=== PATIENT | female | born 1945 | race Caucasian/White ===

== ENCOUNTER 2023-06-04 19:30 | Observation (INO) | payer MEDICARE, BC ==
[2023-06-04] VITALS (20 sets, daily range): BP systolic 55–109; BP diastolic 33–56
[~2023-06-04] VITALS: Ht 162.6 cm; Wt 82.0 kg
[2023-06-04] MEDS ORDERED: LEVOTHYROXIN25 MC1 PO (19:58)
[2023-06-04] MEDS ORDERED: ALDACTONE25 MG PO (19:58)
[2023-06-04] MEDS ORDERED: ELIQUIS5 MG PO (19:58)
[2023-06-04] MEDS ORDERED: NORVASC PO (19:59)
[2023-06-04] MEDS ORDERED: FERROUS SULFAT325 MG PO (19:59)
[2023-06-04] MEDS ORDERED: BENAZEPRIL20 M1 PO (19:59)
[2023-06-04] MEDS ORDERED: COREG25 MG PO (20:00)
[2023-06-04] MEDS ORDERED: FENTANYL25 MCG/HR TD (20:00)
[2023-06-04] MEDS ORDERED: CYMBALTA30 MG PO (20:00)
[2023-06-04 20:17] LABS: BASO% 0.4 % (0-3); EOS% 1.8 % (0-8); HEMATOCRIT 33.3 % (37.0-47.0); HEMOGLOBIN 10.6 g/dl (12.0-16.0); IMMATURE GRANULOCYTES 0.3 % (0.0-5.0); LYMPH% 20.6 % (15-41); MEAN CORPUSCULAR HGB 29.6 pG CALC (26.0-32.0); MEAN CORPUSCULAR HGB CONC 31.8 g/dL CAL (32.0-36.0); NEUT# 5.29 thou/uL (2.00-7.15); NEUT% 68.9 % (42-76); RED BLOOD COUNT 3.58 mill/uL (4.20-5.60); RED CELL DISTRI WIDTH 13.6 % (11.5-15.5)
[2023-06-04 20:27] LABS: ALBUMIN 3.5 g/dL (3.2-5.0); BILIRUBIN, TOTAL 0.6 mg/dL (0.02-1.3); CREATININE 3.5 mg/dL (0.5-1.0); MAGNESIUM 1.5 mg/dL (1.6-2.3); POTASSIUM 5.6 mmol/l (3.5-5.1)
[2023-06-04 20:57] LABS: TSH, 3RD GENERATION 3.86 uIU/mL (0.47 - 4.68)
[2023-06-04 22:32] LABS: URINE BILIRUBIN - DIPSTICK NEGATIVE (NEGATIVE); URINE BLOOD DIPSTICK NEGATIVE (NEGATIVE); URINE COLOR YELLOW; URINE GLUCOSE - DIPSTICK NEGATIVE (NEGATIVE); URINE KETONE TRACE mg/dL (NEGATIVE); URINE PH 5.5 (4.5-8.0); URINE PROTEIN - DIPSTICK NEGATIVE (NEG-TRACE); URINE SPECIFIC GRAVITY 1.015; URINE UROBILINOGEN - DIPSTICK 0.2 E.U./dL (0.2)
[2023-06-04 22:33] LABS: URINE LEUK ESTERASE SMALL (NEGATIVE); URINE NITRITE - DIPSTICK NEGATIVE (Negative)
[2023-06-04 22:38] LABS: URINE SQUAMOUS EPITHELIAL CELL MANY EPI/hpf (0-FEW)
[2023-06-04 22:39] LABS: URINE HYALINE CAST RARE lpf (NONE-RARE)
[2023-06-05] VITALS (11 sets, daily range): BP systolic 87–139; BP diastolic 44–82
[2023-06-05 05:27] LABS: CREATININE 2.7 mg/dL (0.5-1.0)
[2023-06-05 05:33] LABS: POTASSIUM 5.5 mmol/l (3.5-5.1)
[2023-06-06 05:35] LABS: BASO% 0.3 % (0-3); EOS% 2.6 % (0-8); HEMATOCRIT 31.9 % (37.0-47.0); HEMOGLOBIN 9.9 g/dl (12.0-16.0); IMMATURE GRANULOCYTES 0.3 % (0.0-5.0); LYMPH% 25.1 % (15-41); MEAN CELL VOLUME 93.5 fL CALC (80.0-100.0); MONO% 7.7 % (2-13); NEUT# 3.97 thou/uL (2.00-7.15); RED BLOOD COUNT 3.41 mill/uL (4.20-5.60); RED CELL DISTRI WIDTH 13.8 % (11.5-15.5)
[2023-06-06 05:45] LABS: MAGNESIUM 1.8 mg/dL (1.6-2.3)
[2023-06-06 05:54] LABS: CREATININE 1.7 mg/dL (0.5-1.0)
[2023-06-06 07:20] VITALS: BP 94/48
[2023-06-06 11:38] LABS: CREATININE 1.5 mg/dL (0.5-1.0); POTASSIUM 5.9 mmol/l (3.5-5.1)
[2023-06-06 15:33] VITALS: BP 123/61
[2023-06-06 15:53] LABS: CREATININE 1.5 mg/dL (0.5-1.0); POTASSIUM 5.9 mmol/l (3.5-5.1)
[2023-06-06 18:58] VITALS: BP 108/56
[2023-06-06 22:08] VITALS: BP 109/56
[2023-06-07 00:19] VITALS: BP 115/64
[2023-06-07 04:50] VITALS: BP 126/68
[2023-06-07 08:00] VITALS: BP 144/92
[2023-06-07 11:54] VITALS: BP 144/92
[2023-06-07 12:16] LABS: ALBUMIN 3.7 g/dL (3.2-5.0); CREATININE 1.3 mg/dL (0.5-1.0)
[2023-06-07 12:17] LABS: POTASSIUM 5.6 mmol/l (3.5-5.1)
[2023-06-07 15:47] VITALS: BP 144/92
[2023-06-08 04:37] LABS: BASO% 0.5 % (0-3); EOS% 2.4 % (0-8); HEMATOCRIT 32.7 % (37.0-47.0); HEMOGLOBIN 10.4 g/dl (12.0-16.0); IMMATURE GRANULOCYTES 0.7 % (0.0-5.0); LYMPH% 17.8 % (15-41); MEAN CELL VOLUME 92.9 fL CALC (80.0-100.0); MEAN CORPUSCULAR HGB 29.5 pG CALC (26.0-32.0); MEAN CORPUSCULAR HGB CONC 31.8 g/dL CAL (32.0-36.0); MONO% 8.9 % (2-13); NEUT# 5.9 thou/uL (2.00-7.15); NEUT% 69.7 % (42-76); RED BLOOD COUNT 3.52 mill/uL (4.20-5.60); RED CELL DISTRI WIDTH 13.8 % (11.5-15.5)
[2023-06-08 04:55] LABS: CREATININE 1.3 mg/dL (0.5-1.0); POTASSIUM 4.6 mmol/l (3.5-5.1)
[2023-06-08 05:03] LABS: ALBUMIN 2.8 g/dL (3.2-5.0)
[2023-06-08 08:00] VITALS: BP 144/92
[2023-06-08] MEDS ORDERED: FOLIC ACID1 M1 PO (09:18)
[2023-06-08 09:19] VITALS: BP 127/62
[2023-06-08 09:47] VITALS: BP 139/73
== END 2023-06-08 10:02 | disposition home health service (06) ==
LOC: ED 19:30 → ED-I 22:35 → ED 22:54 → MS2 22:55 → ICU 22:55 → MS2 23:40 → ICU 06-06 21:21
PROVIDERS: Family Medicine; Internal Medicine Nephrology; Nurse Practitioner Family; ADMIT Internal Medicine; ATTEND Internal Medicine
DX: T46.5X1A Poisoning by other antihypertensive drugs, accidental (unintentional), initial encounter (principal); I95.2 Hypotension due to drugs; E86.0 Dehydration; E86.1 Hypovolemia; N17.9 Acute kidney failure, unspecified; E87.5 Hyperkalemia; E83.39 Other disorders of phosphorus metabolism; I12.9 Hypertensive chronic kidney disease with stage 1 through stage 4 chronic kidney disease, or unspecified chronic kidney disease; N18.9 Chronic kidney disease, unspecified; E87.20 Acidosis, unspecified; E03.9 Hypothyroidism, unspecified; K59.00 Constipation, unspecified; I48.91 Unspecified atrial fibrillation; Z20.822 Contact with and (suspected) exposure to COVID-19

== ENCOUNTER 2023-06-14 11:44 | Observation (INO) | payer MEDICARE, BC ==
[2023-06-14] VITALS (33 sets, daily range): BP systolic 72–118; BP diastolic 38–83
[~2023-06-14] VITALS: Ht 10.2 cm; Wt 80.0 kg
[~2023-06-14 11:44] MED LIST: ALDACTONE25 MG PO; BENAZEPRIL20 M1 PO; COREG25 MG PO; CYMBALTA30 MG PO; ELIQUIS5 MG PO; FENTANYL25 MCG/HR TD; FERROUS SULFAT325 MG PO; FOLIC ACID1 M1 PO; LEVOTHYROXIN25 MC1 PO; NORVASC PO
--- NOTE | 2023-06-14 11:47 | NUR ---
PT ARRIVED VIA EMS, ATTATCHED TO MONITORS.
[2023-06-14] MEDS ORDERED: LASIX 40 MG TAB40 MG PO (12:02)
--- NOTE | 2023-06-14 12:10 | NUR ---
PT HAS DAUGHTER KARO.
--- NOTE | 2023-06-14 12:59 | NUR ---
PT IS RESTING, N/VD ALL SUBSIDED.
[2023-06-14 13:05] LABS: BASO% 0.4 % (0-3); EOS% 1.6 % (0-8); HEMOGLOBIN 12.1 g/dl (12.0-16.0); IMMATURE GRANULOCYTES 0.1 % (0.0-5.0); LYMPH% 10.1 % (15-41); MEAN CELL VOLUME 95.4 fL CALC (80.0-100.0); MEAN CORPUSCULAR HGB 29.5 pG CALC (26.0-32.0); MEAN CORPUSCULAR HGB CONC 30.9 g/dL CAL (32.0-36.0); MONO% 4.7 % (2-13); NEUT# 7.86 thou/uL (2.00-7.15); NEUT% 83.1 % (42-76); RED BLOOD COUNT 4.1 mill/uL (4.20-5.60); RED CELL DISTRI WIDTH 13.8 % (11.5-15.5)
[2023-06-14 13:06] LABS: HEMATOCRIT 39.1 % (37.0-47.0)
[2023-06-14 13:16] LABS: BILIRUBIN, TOTAL 0.6 mg/dL (0.02-1.3); CREATININE 1.9 mg/dL (0.5-1.0); TOTAL PROTEIN 6.1 g/dL (6.3-8.2)
[2023-06-14 13:20] LABS: ALBUMIN 3.5 g/dL (3.2-5.0)
--- NOTE | 2023-06-14 13:33 | NUR ---
STRAUIGHT CATH PERFORMED.
[2023-06-14 13:48] LABS: URINE BILIRUBIN - DIPSTICK NEGATIVE (NEGATIVE); URINE COLOR YELLOW; URINE GLUCOSE - DIPSTICK NEGATIVE (NEGATIVE); URINE KETONE Negative (NEGATIVE); URINE PH 5.5 (4.5-8.0); URINE PROTEIN - DIPSTICK NEGATIVE (NEG-TRACE)
[2023-06-14 13:49] LABS: URINE BLOOD DIPSTICK TRACE-INTACT (NEGATIVE); URINE LEUK ESTERASE LARGE (NEGATIVE); URINE NITRITE - DIPSTICK NEGATIVE (Negative); URINE UROBILINOGEN - DIPSTICK 0.2 E.U./dL (0.2)
[2023-06-14 13:57] LABS: URINE BACTERIA FEW hpf; URINE RBC 0-2 RBC/hpf (0-5); URINE SQUAMOUS EPITHELIAL CELL FEW EPI/hpf (0-FEW)
[2023-06-14 13:58] LABS: URINE HYALINE CAST FEW lpf (NONE-RARE)
--- NOTE | 2023-06-14 14:14 | NUR ---
PT R'CD BOLUS.
[2023-06-14] MEDS ORDERED: B121000 MC1 PO (15:15)
[2023-06-14] MEDS ORDERED: D3250 MCG PO (15:16)
--- NOTE | 2023-06-14 15:52 | NUR ---
PT HAS HAD RHYTHM CHANGE PER MONITOR, REPEAT EKG GETTING DONE.
--- NOTE | 2023-06-14 16:25 | NUR ---
CALLED [facility] TO GET REPORT ON PT, M/S NURSE NOT READY TO RECEIVE PT.
--- NOTE | 2023-06-14 17:40 | NUR ---
CALL MADE TO M/S. NO ANSWER BY STAFF,
--- NOTE | 2023-06-14 18:45 | NUR ---
PT IS SLEEPING, NAD, NO COMPLAINTS AT THIS TIME.
--- NOTE | 2023-06-14 19:33 | NUR ---
REPORT RECEIVED FROM Chaim KOENIG RN
--- NOTE | 2023-06-14 19:36 | NUR ---
REPORT CALLED TO MD ADAN BATISTA; PT STABLE AT TIME OF TX; VSS, NAD. AMBULATED FROM STRETCHER TO BED WITH SHOP TEACHER.
--- NOTE | 2023-06-14 21:19 | NUR ---
Took patient glucose meter check @2000 and the meter readed 100 and the nurse was notified.
--- NOTE | 2023-06-14 21:42 | NUR ---
PATIENT ARRIVED TO FLOOR VIA STRETCHER ACCOPANIED BY Chaim KOENIG RN. PATIENT ABLE TO AMBULATE TO BED WITH STANDBY ASSITANCE.
[2023-06-15] VITALS (12 sets, daily range): BP systolic 97–124; BP diastolic 39–61
--- NOTE | 2023-06-15 04:00 | NUR ---
PATIENT RESTING, NO APPARENT DISTRESS NOTED. RESPIRATIONS EVEN AND UNLABORED, RISE AND FALL OF CHEST NOTED. CALL LIGHT AND BEDSIDE TABLE WITHIN REACH.
[2023-06-15 05:32] LABS: MEAN CELL VOLUME 95.2 fL CALC (80.0-100.0); MEAN CORPUSCULAR HGB 29.3 pG CALC (26.0-32.0); MEAN CORPUSCULAR HGB CONC 30.8 g/dL CAL (32.0-36.0); RED BLOOD COUNT 3.31 mill/uL (4.20-5.60); RED CELL DISTRI WIDTH 14.1 % (11.5-15.5)
[2023-06-15 05:33] LABS: ALBUMIN 2.8 g/dL (3.2-5.0); CREATININE 2.4 mg/dL (0.5-1.0); POTASSIUM 3.4 mmol/l (3.5-5.1); TOTAL PROTEIN 5.2 g/dL (6.3-8.2)
[2023-06-15 05:34] LABS: BILIRUBIN, TOTAL 0.3 mg/dL (0.02-1.3); MAGNESIUM 1.1 mg/dL (1.6-2.3)
[2023-06-15 05:47] LABS: HEMATOCRIT 31.5 % (37.0-47.0); HEMOGLOBIN 9.7 g/dl (12.0-16.0)
--- NOTE | 2023-06-15 06:18 | NUR ---
pt glucose was 91 @0610
--- NOTE | 2023-06-15 07:00 | NUR ---
RECEIVE REPORT FROM YSABEL ARELLANO.
--- NOTE | 2023-06-15 08:00 | NUR ---
Alert and oriented patient x3. She does not report pain or discomfort at the time of this note. TV monitor on. patient is educated and oriented about medications and nursing plan for all. pt refer understand. safety and fall precautions in place. call light within reach.
--- NOTE | 2023-06-15 10:58 | NUR ---
pt glucose was 117 @1030
--- NOTE | 2023-06-15 12:00 | NUR ---
PATIENT RESTING IN BED, NO APPARENT DISTRESS NOTED. RESPIRATIONS EVEN AND UNLABORED, RISE AND FALL OF CHEST NOTED. CALL LIGHT AND BEDSIDE TABLE WITHIN REACH.
--- NOTE | 2023-06-15 16:33 | NUR ---
PT RESTING IN HIGH FOWLERS POSITION PT DENIES ADDITIONAL NEEDS AT THE TIME.
--- NOTE | 2023-06-15 18:50 | NUR ---
REPORT RECEIEVED FROM Merissa HUGHES LPN.
--- NOTE | 2023-06-16 | NUR ---
PATIENT RESTING NO APPARENT DISTRESS NOTED. CALL LIGHT AND BEDSIDE TABLE WIHTIN REACH.
[2023-06-16 00:21] VITALS: BP 121/52
--- NOTE | 2023-06-16 04:30 | NUR ---
PATIENT RESTING NO APPARENT DISTRESS NOTED. CALL LIGHT AND BEDSIDE TABLE WIHTIN REACH.
[2023-06-16 04:48] VITALS: BP 127/59
[2023-06-16 04:54] VITALS: BP 127/59
[2023-06-16 05:56] LABS: HEMATOCRIT 31.1 % (37.0-47.0); HEMOGLOBIN 9.7 g/dl (12.0-16.0); MEAN CORPUSCULAR HGB 29.9 pG CALC (26.0-32.0); MEAN CORPUSCULAR HGB CONC 31.2 g/dL CAL (32.0-36.0); RED BLOOD COUNT 3.24 mill/uL (4.20-5.60); RED CELL DISTRI WIDTH 14.1 % (11.5-15.5)
[2023-06-16 06:21] LABS: ALBUMIN 2.9 g/dL (3.2-5.0); BILIRUBIN, TOTAL 0.3 mg/dL (0.02-1.3); CREATININE 1.5 mg/dL (0.5-1.0); MAGNESIUM 1.3 mg/dL (1.6-2.3); POTASSIUM 3.5 mmol/l (3.5-5.1); TOTAL PROTEIN 5.7 g/dL (6.3-8.2)
[2023-06-16 06:52] VITALS: BP 124/69
--- NOTE | 2023-06-16 08:00 | NUR ---
PERFROMED BEDSIDE REPORT WITH EXCHANGE TELLER NURSE. PT NOTED SITTING UP HIGH FOWLERS IN BED, EATING BREAKFAST AT THIS TIME. PT IS ON RM AIR. A/OX3, DENIES ANY PAIN. PT IS PLESEANT. EDUCATED ON PLAN OF CARE TODAY. CALL LIGHT WITHIN REACH AND SAFETY PRECAUTIONS IN PLACE.
[2023-06-16 10:36] VITALS: BP 109/46
--- NOTE | 2023-06-16 14:25 | NUR ---
IV site discontinued, cath intact. No edema , no redness, voices no discomfort. Discharge instructions given. Patient verbalizes understanding of same. Discharged in stable condition via Wheelchair to Home with staff. All belongings sent with pt.
== END 2023-06-16 14:24 | disposition home health service (06) ==
LOC: ED 11:44 → MS2 14:57
PROVIDERS: Nurse Practitioner; ADMIT Internal Medicine; ATTEND Internal Medicine
DX: N17.9 Acute kidney failure, unspecified (principal); E87.6 Hypokalemia; E86.0 Dehydration; I95.9 Hypotension, unspecified; E11.22 Type 2 diabetes mellitus with diabetic chronic kidney disease; I12.9 Hypertensive chronic kidney disease with stage 1 through stage 4 chronic kidney disease, or unspecified chronic kidney disease; N18.9 Chronic kidney disease, unspecified; I48.91 Unspecified atrial fibrillation; M54.9 Dorsalgia, unspecified; G89.29 Other chronic pain; Z91.81 History of falling
CPT/HCPCS: J3475

== ENCOUNTER 2024-05-17 13:37 | Emergency (ER) | payer MEDICARE, BC ==
[~2024-05-17] VITALS: Ht 162.6 cm; Wt 58.0 kg
[~2024-05-17 13:37] MED LIST changes: +B121000 MC1 PO; +D3250 MCG PO; +LASIX 40 MG TAB40 MG PO
[2024-05-17 13:49] VITALS: BP 139/78
[2024-05-17] MEDS ORDERED: LIDOcaine HCl 1% (Local Anesth.) 20 ML VIAL STI ONE (13:55)
[2024-05-17 14:00] VITALS: BP 136/68
[2024-05-17 14:16] VITALS: BP 94/69
[2024-05-17] MEDS ORDERED: KEFLEX500 MG PO (14:16)
[2024-05-17 14:31] VITALS: BP 139/78; BP 73/53
== END 2024-05-17 14:41 | disposition home or self-care (01) ==
LOC: ED 13:37
PROC: 0H9EXZZ Drainage of Left Lower Arm Skin, External Approach (ICD-10-PCS; principal; 2024-05-17)
DX: L98.9 Disorder of the skin and subcutaneous tissue, unspecified (principal); I10 Essential (primary) hypertension; I48.91 Unspecified atrial fibrillation